=== PATIENT | male | born 1995 | race Caucasian/White ===

== ENCOUNTER 2018-01-28 11:31 | Emergency (ER) | payer OTHER ==
[~2018-01-28] VITALS: Ht 175.3 cm; Wt 71.4 kg
[2018-01-28 11:38] VITALS: BP 133/76; TEMP 36.7; Ht 175.3 cm; Wt 71.4 kg
--- NOTE | 2018-01-28 12:45 | DIAGNOSTIC IMAGING REPORT ---
L TIBIA/FIBULA 2 VIEWS ROUTINE CLINICAL HISTORY: 22 years-old Male presenting with Lower leg injury. TECHNIQUE: Frontal and lateral views of the left lower leg were obtained. COMPARISON: None. FINDINGS: No acute fracture or malalignment. No advanced degenerative change. No radiographic soft tissue abnormality. IMPRESSION: No acute osseous injury. Electronically signed by: Dami Hurtado M.D. 01/28/2018 12:44 PM Dictated Date/Time: 01/28/2018 12:43 PM
--- NOTE | 2018-01-28 12:52 | DIAGNOSTIC IMAGING REPORT ---
L ANKLE MIN 3 VIEWS ROUTINE CLINICAL HISTORY: 22 years-old Male presenting with Ankle injury. TECHNIQUE: Frontal, mortise, and lateral views of the left ankle were obtained. COMPARISON: None. FINDINGS: Ankle mortise intact. No acute fracture or malalignment. No advanced degenerative change. No radiographic soft tissue abnormality. IMPRESSION: No acute osseous injury of the left ankle. Electronically signed by: Dami Hurtado M.D. 01/28/2018 12:50 PM Dictated Date/Time: 01/28/2018 12:50 PM
--- NOTE | 2018-01-28 13:02 | EMERGENCY ROOM VISIT NOTE ---
ED Visit Note First contact with patient: 11:51 CHIEF COMPLAINT: Left ankle injury HISTORY OF PRESENT ILLNESS: This patient sustained an injury to the left ankle with a twisting, inversion motion last evening when he was playing hockey. Complains of swelling and pain. The patient is able to bear weight on the foot but with pain. Constant pain, moderate to severe, worse with movement, weight bearing, and the dependent position. No knee pain. The patient states that some of the pain is on the distal third of the lower leg. The patient applied ice immediately. The patient has seen [facility] in the past for other orthopedic injuries. REVIEW OF SYSTEMS: 6 system review was performed and was negative unless stated otherwise in history of present illness. PMH: No prior significant ankle injury. The patient is generally healthy with no chronic medical problems or a history of major surgery. SOCIAL HISTORY: Patient is a [employer] student. The patient admits to occasional alcohol use but denies any tobacco use. PHYSICAL EXAM: Vital Signs: Were reviewed reviewed Nurse's notes. general: 22- year-old white male appears in no acute distress. MENTAL STATUS: Alert, oriented, and cooperative. LEFT ANKLE: The ankle is swollen and tender over the lateral aspect extending up the distal third of the lower leg. But the skin is intact and there is no ligamentous instability. There is no deformity. The foot and toes are warm and well-perfused. Sensation to pain and light touch is intact. EMERGENCY DEPARTMENT COURSE: The patient was evaluated. The patient was offered pain medication but declined. X-ray of the left tib-fib and ankle were ordered interpreted by the radiologist and myself. DIAGNOSTICS:L TIBIA/FIBULA 2 VIEWS ROUTINE CLINICAL HISTORY: 22 years-old Male presenting with Lower leg injury. TECHNIQUE: Frontal and lateral views of the left lower leg were obtained. COMPARISON: None. FINDINGS: No acute fracture or malalignment. No advanced degenerative change. No radiographic soft tissue abnormality. IMPRESSION: No acute osseous injury. Electronically signed by: Dami Hurtado M.D. 01/28/2018 12:44 PM L ANKLE MIN 3 VIEWS ROUTINE CLINICAL HISTORY: 22 years-old Male presenting with Ankle injury. TECHNIQUE: Frontal, mortise, and lateral views of the left ankle were obtained. COMPARISON: None. FINDINGS: Ankle mortise intact. No acute fracture or malalignment. No advanced degenerative change. No radiographic soft tissue abnormality. IMPRESSION: No acute osseous injury of the left ankle. Electronically signed by: Dami Hurtado M.D. 01/28/2018 12:50 PM The patient was informed of the findings. The patient was placed in a gel splint and given crutches. The patient was discharged home in stable condition. DIAGNOSIS: Sprained left ankle DISCHARGE INSTRUCTIONS: Ice and elevation over the next 24 hours. Ibuprofen, 600 mg every 6 hours if needed for pain. Use crutches and wear gel splint until weightbearing is tolerable. If there is no improvement in 3-5 days followup with your doctor or an orthopedic surgeon . Current/Historical Medications No Active Prescriptions or Reported Meds Allergies Coded Allergies: No Known Allergies (Unverified , 01/28/18) Vital Signs Date Time Temp Pulse Resp B/P (MAP) Pulse Ox O2 Delivery O2 Flow Rate FiO2 01/28/18 11:38 36.7 68 18 133/76 98 Room Air Departure Information Prescriptions No Active Prescriptions or Reported Meds Referrals Barbi Melendrez M.D. (PCP) Patient Instructions [facility]
[2018-01-28 13:13] VITALS: PULSE 76; O2SAT 96
== END 2018-01-28 13:14 | disposition home or self-care (01) ==
LOC: C.EDB 11:33 → C.EDD 13:14
DX: S93.402A Sprain of unspecified ligament of left ankle, initial encounter (principal); X50.9XXA Other and unspecified overexertion or strenuous movements or postures, initial encounter